=== PATIENT | male | born 1960 | race American Indian/Alaskan Native ===

== ENCOUNTER 2016-07-17 11:34 | Day surgery (SDC) | payer OTHER ==
[2016-07-17] MEDS ORDERED: DIPRIVAN 10 MG/ML IV ONE ×2 (14:34)
[2016-07-17] MEDS ORDERED: NACL 0.9% 1000 ML 1,000 ML IV SCH (15:00)
[2016-07-17] MEDS ORDERED: XYLOCAINE MPF 2% ONE (16:25)
[2016-07-17] MEDS ORDERED: WATER FOR IRRIG STERILE IR ONE (16:27)
--- NOTE | 2016-07-17 16:34 | History and Physical Report ---
History of Present Illness Date of examination: 07/17/16 Date of admission: 07/17/2016 Chief complaint: Colorectal cancer screening. History of present illness: Patient's a 56-year-old male who presents for colorectal cancer screening. Denies any other complaints. Past History Past Medical History: No medical history Medications and Allergies Allergies Allergy/AdvReac Type Severity Reaction Status Date / Time No Known Allergies Allergy Verified 07/17/16 13:46 Home Medications Medication Instructions Recorded Confirmed Last Taken Type No Known Home Medications [No 07/17/16 07/17/16 Unknown History Reported Home Medications] Active Meds: Active Medications Sodium Chloride (Nacl 0.9% 1000 Ml) 1,000 mls @ 50 mls/hr IV DIRECT LOPEZ Last Admin: 07/17/16 14:47 Dose: 50 mls/hr Review of Systems All systems: negative Exam - Constitutional Vitals: Temp Pulse Resp BP Pulse Ox 98.2 F 83 18 158/97 96 07/17/16 14:35 07/17/16 14:35 07/17/16 14:35 07/17/16 14:35 07/17/16 14:35 General appearance: Present: no acute distress, well-nourished - EENT Eyes: Present: PERRL ENT: hearing intact, clear oral mucosa - Neck Neck: Present: supple, normal ROM - Respiratory Respiratory effort: normal Respiratory: bilateral: CTA - Cardiovascular Heart Sounds: Present: S1 & S2. Absent: rub, click - Extremities Extremities: pulses symmetrical, No edema Peripheral Pulses: within normal limits - Abdominal General gastrointestinal: Present: soft, non-tender, non-distended, normal bowel sounds Male genitourinary: Present: normal - Integumentary Integumentary: Present: clear, warm, dry - Musculoskeletal Musculoskeletal: gait normal, strength equal bilaterally - Psychiatric Psychiatric: appropriate mood/affect, intact judgment & insight - Neurologic Neurologic: CNII-XII intact, moves all extremities Assessment and Plan Colorectal cancer screening. Plan: Full colonoscopy.
--- NOTE | 2016-07-17 16:35 | Operative Report ---
Operative Report Operative Report: Procedure: Colonoscopy. Attending physician: Ish White MD Chronometer Tester: Ish White MD Indication: Patient is a 56-year-old male who presents for screening colonoscopy. Consent: Informed consent was obtained after advising the patient and family regarding nature of this procedure, its indications, potential benefits as well as possible complications including but not limited to bleeding perforation and adverse reaction to medication, infection as well as other cardiopulmonary complications. An informed written and verbal consent was then obtained after due opportunity was provided for questions and answers. Monitoring: Patient was monitored continuously with pulse oximetry and electrocardiographic recordings as well as blood pressure recordings. Vital signs remained stable throughout this procedure with no untoward events. Preoperative assessment: Patient was assessed immediately prior to this procedure for capacity to tolerate monitored anesthesia care and moderate sedation as well as general anesthesia. Patient's ASA classification is 2, Mallampati class is 2, Hyomental distance is 3. Instrument: [employer]aly[employer]earn videocolonoscope Medications: Propofol given intravenously in divided doses. For details please refer to anesthesia records. Description of procedure: Patient was placed in the left lateral decubitus position after achieving sedation, a digital rectal examination was performed following which the colonoscope was introduced into the anal verge and advanced to the cecum which was identified by the cecal valve, the appendiceal orifice, as well as by the cecal strap and direct transillumination. The colonoscope was subsequently withdrawn with careful inspection of all mucosal surfaces. Patient tolerated this procedure well and was subsequently taken to the recovery room. The following findings were noted. Findings: There was some thick liquid stool in sections the colon which is fairly easily irrigated. The entirety of the colon otherwise did not have any abnormal mucosal findings. On the retroflex examination at the anal verge, patient had internal hemorrhoids. Impression: Retained stool. Internal hemorrhoids. Plan:High-fiber diet. Repeat colonoscopy in 10 years.
--- NOTE | 2016-07-17 16:36 | Anesthesia Consultation ---
Anesthesia Consult and Med Hx Date of service: 07/17/16 - Airway Anesthetic Teeth Evaluation: Poor ROM Head & Neck: Inadequate Mental/Hyoid Distance: Inadequate Mallampati Class: Class IV Intubation Access Assessment: Possibly Difficult - Pulmonary Exam CTA: Yes - Cardiac Exam Cardiac Exam: RRR - Pre-Operative Health Status ASA Pre-Surgery Classification: ASA2 Proposed Anesthetic Plan: MAC - Pulmonary Hx Smoking: No - Cardiovascular System Hx Hypertension: No - Central Nervous System Hx Back Pain: No - Gastrointestinal Hx Gastroesophageal Reflux Disease: No - Endocrine Hx Insulin Dependent Diabetes: No - Hematic Hx Anemia: No Hx Sickle Cell Disease: No - Other Systems Hx Alcohol Use: No Hx Substance Use: No Hx Cancer: No Hx Obesity: Yes
--- NOTE | 2016-07-17 16:36 | Anesthesia Day of Surgery ---
Anesthesia Day of Surgery - Day of Surgery Patient Examined: Yes Patient H&P Reviewed: Yes Patient is NPO: Yes
[2016-07-17] MEDS ORDERED: WATER FOR IRRIG STERILE ONE (16:38)
--- NOTE | 2016-07-17 16:59 | Discharge Summary ---
Short Stay Discharge Plan Activity: advance as tolerated Weight Bearing Status: Weight Bear as Tolerated Diet: regular
[2016-07-17 17:35] VITALS: BP 144/92
== END 2016-07-17 11:35 | disposition home or self-care (01) ==
LOC: GIO 11:34
PROVIDERS: ATTEND Internal Medicine Gastroenterology
DX: Z12.11 Encounter for screening for malignant neoplasm of colon (principal); K64.8 Other hemorrhoids; E66.9 Obesity, unspecified; Z68.42 Body mass index [BMI] 45.0-49.9, adult
CPT/HCPCS: 45378; J2704; J7030